=== PATIENT | male | born 1945 | race Caucasian/White ===

== ENCOUNTER 2017-06-30 17:54 | Inpatient (IN) ==
[2017-06-30] MEDS ORDERED: ETOMIDATE 20 MG/10 ML VIAL IV ONE (19:01)
[2017-06-30] MEDS ORDERED: VECURONIUM 10 MG VIAL IV ONE ×2 (19:01→22:33)
[2017-06-30] MEDS ORDERED: PANTOPRAZOLE 40 MG VIAL IV STA (19:06)
[2017-06-30] MEDS ORDERED: SODIUM CHLORIDE 0.9% 500 ML IV STA (19:06)
[2017-06-30] MEDS ORDERED: CLINDAMYCIN INJ 900 MG in PREMIX 1 EACH IV STA (19:06)
[2017-06-30] MEDS ORDERED: methylPREDNISolone SOD SUC 125 MG/2 ML VIAL IV STA (19:06)
[2017-06-30] MEDS ORDERED: PROPOFOL 1,000 MG/100 ML BOTTLE IV ONE (19:25)
[2017-06-30] MEDS: PROPOFOL 1,000 MG/100 ML BOTTLE IV SCH (19:35)
[2017-06-30 19:56] LABS: Allen Test Positive; Pt O2 Delivery Device Ventilator
[2017-06-30 19:57] LABS: ABG Base Excess 3.4 MMOL/L (-2.5-2.5); ABG HCO3 27.5 MMOL/L (20-26); ABG Oxygen Saturation 98.1 % (95-100); ABG PCO2 67.4 MM HG (35-48); ABG TCO2 28.9 MMOL/L (23-27)
[2017-06-30 20:09] LABS: Barbiturates Screen,Urine Negative (Negative); Benzodiazepines Screen,Urine Negative (Negative); Cannabinoid Screen,Urine Negative (Negative); Opiate Screen,Urine Negative (Negative); Phencyclidine Screen,Urine Negative (Negative)
[2017-06-30 20:10] LABS: Apearance,Urine Slightly Hazy (Clear); Bilirubin,Urine Negative (Negative); Blood, Urine Negative (Negative); Glucose,Urine (UA) >=500 mg/dL (Negative); Granular Casts,Urine 5 /LPF (0-1); Hyaline Casts,Urine 7 /LPF (0-3); Ketones,Urine Negative (Negative); Mucus,Urine Occasional /LPF (Occasional); Nitrite,Urine Negative (Negative); Protein,Urine >=500 MG/DL; RBC,Urine 1 /HPF (0-4); Squamous Epithelial Cell,Urine Occasional /HPF (0-10); Urine Color Yellow (Yellow); Urine Specific Gravity 1.017 (1.001-1.035); Urine Urobilinogen < 2.0 EU/DL (0.2-1.0)
[2017-06-30 20:49] LABS: Basophils % 0.2 % (0.0-0.8); Eosinophils # 0.1 10*3/uL (0.0-0.87); Eosinophils % 1.6 % (0.00-10.9); Hematocrit 38.4 VOL% (42.0-52.0); Hemoglobin 12.1 GM/DL (14.0-18.0); Immature Granulocytes % 0.3 %; Immature Granulocytes Absolute 0.02 #; Lymphocytes # 2.1 10*3/uL (1.4-4.0); Lymphocytes % 33.1 % (21.2-54.2); Mean Corpuscular HGB Conc 31.5 GM/DL (32-36); Mean Corpuscular Hemoglobin 28 PG (27-34); Mean Corpuscular Volume 90.1 FL (87-102); Monocytes # 0.9 10*3/uL (0.11-0.8); Monocytes % 14.7 % (1.7-12.7); Neutrophils # 3.2 10*3/uL (1.4-7.4); Neutrophils % 50.1 % (38.7-73.9); Platelet Count 176 T/CUMM (130-400); Red Blood Count 4.26 MC/CUMM (3.8-5.5); Red Cell Distribution Width 14.4 % (9.3-17.3); White Blood Count 6.4 T/CUMM (4-12)
[2017-06-30 20:57] LABS: INR 0.9
[2017-06-30 21:04] LABS: Lactic Acid 1.5 MMOL/L (0.4-2.0)
[2017-06-30 21:06] LABS: Alanine Aminotransferase 12 U/L (16-61); Albumin 2.6 G/DL (3.4-5.0); Alkaline Phosphatase 67 U/L (45-117); Aspartate Amino Transferase 23 U/L (0-37); Blood Urea Nitrogen 22 MG/DL (7-18); Calcium 8.4 MG/DL (8.5-10.1); Glucose 129 MG/DL (74-106); Osmolality,Calculated 274.1 MOS/KG (273-304); Sodium 135 MMOL/L (136-145); Total Protein 7.1 G/DL (6.4-8.3); Troponin I Only < 0.015 NG/ML (0.00-0.045)
[2017-06-30 21:21] LABS: Ammonia 43 UMOL/L (11-32)
[2017-06-30] MEDS ORDERED: PANTOPRAZOLE 40 MG VIAL IV ONE (21:50)
[2017-06-30] MEDS ORDERED: CLINDAMYCIN INJ 50 ML IV ONE (21:50)
[2017-06-30] MEDS ORDERED: methylPREDNISolone SOD SUC 125 MG/2 ML VIAL ONE (21:51)
[2017-06-30 21:54] LABS: Sedimentation Rate-Westergren 85 MM/HR (0-20)
[2017-06-30] MEDS ORDERED: ALBUTEROL 2.5 MG/3 ML NEB RESP TX PRN (23:31)
[2017-06-30] MEDS ORDERED: ACETAMINOPHEN 325 MG TABLET PO PRN (23:31)
[2017-06-30] MEDS ORDERED: ONDANSETRON 4 MG/2 ML VIAL IV PRN (23:31)
[2017-06-30] MEDS ORDERED: PANTOPRAZOLE 40 MG VIAL IV SCH (23:45)
[2017-07-01] MEDS ORDERED: methylPREDNISolone SOD SUC 40 MG/1 ML VIAL IV SCH (00:30)
[2017-07-01] MEDS: methylPREDNISolone SOD SUC 40 MG/1 ML VIAL IV SCH ×4 (00:59→18:30)
[2017-07-01] MEDS ORDERED: fentaNYL INJ 1,250 MCG in SODIUM CHLORIDE 0.9% 225 ML IV SCH (01:30)
[2017-07-01] MEDS ORDERED: LEVOFLOXACIN INJ 150 ML IV ONE (01:46)
[2017-07-01] MEDS: SODIUM CHLORIDE 0.9% 1,000 ML IV SCH ×3 (01:50→18:48)
[2017-07-01] MEDS: LEVOFLOXACIN INJ 750 MG in PREMIX 1 EACH IV SCH (01:55)
[2017-07-01] MEDS: ALBUTEROL/IPRATROPIUM 3 ML NEB RESP TX SCH ×4 (02:08→20:16)
[2017-07-01] MEDS ORDERED: PROPOFOL 1,000 MG/100 ML BOTTLE IV ONE (03:45)
[2017-07-01] MEDS: fentaNYL INJ 1,250 MCG in SODIUM CHLORIDE 0.9% 225 ML IV SCH ×4 (05:45→17:09)
[2017-07-01] MEDS ORDERED: ENOXAPARIN 40 MG/0.4 ML SYRINGE SUBCUT SCH (06:00)
[2017-07-01] MEDS ORDERED: SODIUM CHLORIDE 0.9% 1,000 ML IV ONE ×3 (08:36→17:01)
[2017-07-01] MEDS ORDERED: methylPREDNISolone SOD SUC 40 MG/1 ML VIAL ONE (08:47)
[2017-07-01 08:53] LABS: Pt O2 Delivery Device Ventilator
[2017-07-01 08:55] LABS: ABG Base Excess 0.8 MMOL/L (-2.5-2.5); ABG HCO3 25.1 MMOL/L (20-26); ABG Oxygen Saturation 98.6 % (95-100); ABG PCO2 57.7 MM HG (35-48); ABG PH 7.302 (7.35-7.45); ABG TCO2 25.6 MMOL/L (23-27)
[2017-07-01 09:00] LABS: Eosinophils % 0.2 % (0.00-10.9); Hematocrit 36.1 VOL% (42.0-52.0); Hemoglobin 11.7 GM/DL (14.0-18.0); Immature Granulocytes % 0.2 %; Immature Granulocytes Absolute 0.01 #; Lymphocytes # 0.9 10*3/uL (1.4-4.0); Lymphocytes % 18.4 % (21.2-54.2); Mean Corpuscular HGB Conc 32.4 GM/DL (32-36); Mean Corpuscular Hemoglobin 29 PG (27-34); Mean Platelet Volume 8.7 FL (9.6-12.0); Monocytes # 0.2 10*3/uL (0.11-0.8); Monocytes % 2.9 % (1.7-12.7); Neutrophils % 78.3 % (38.7-73.9); Platelet Count 157 T/CUMM (130-400); White Blood Count 5.1 T/CUMM (4-12)
[2017-07-01 09:38] LABS: Albumin 2.5 G/DL (3.4-5.0); Bilirubin,Total 0.4 MG/DL (0.2-1.0); Calcium 7.8 MG/DL (8.5-10.1); Osmolality,Calculated 281.5 MOS/KG (273-304); Potassium 5.9 MMOL/L (3.5-5.1); Total Protein 5.6 G/DL (6.4-8.3)
[2017-07-01] MEDS: PROPOFOL 1,000 MG/100 ML BOTTLE IV SCH ×2 (09:44→20:49)
[2017-07-01 10:48] LABS: Risk Ratio 4.18; Thyroid Stimulating Hormone 1.87 uIU/ml (0.358-3.74); VLDL CHOLESTEROL 30.6 MG/DL
[2017-07-01] MEDS ORDERED: SODIUM CHLORIDE 0.9% IV ONE (11:16)
[2017-07-01] MEDS ORDERED: SODIUM POLYSTYRENE SULFATE 15 GM/60 ML BOTTLE PO ONE (11:29)
[2017-07-01] MEDS ORDERED: SODIUM CHLORIDE 0.9% 2,600 ML IV ONE (11:30)
[2017-07-01] MEDS ORDERED: ENOXAPARIN 150 MG/ML SYRINGE SUBCUT SCH (12:00)
[2017-07-01] MEDS ORDERED: GLUCAGON 1 MG VIAL IM PRN (12:12)
[2017-07-01] MEDS ORDERED: DEXTROSE 50% 25 GM/50 ML VIAL IV PRN (12:12)
[2017-07-01] MEDS ORDERED: DILTIAZEM 30 MG TABLET PO SCH (13:00)
[2017-07-01] MEDS: OXYMETAZOLINE 0.05% NASAL SPRAY 15 ML BOTTLE BOTH NARES SCH ×2 (13:28→21:04)
[2017-07-01] MEDS: CLINDAMYCIN INJ 600 MG in PREMIX 1 EACH IV SCH ×2 (13:28→18:32)
[2017-07-01] MEDS: DILTIAZEM 30 MG TABLET PO SCH ×2 (13:30→18:30)
[2017-07-01] MEDS: INSULIN LISPRO 100 UNIT/ML SUBCUT SCH ×3 (13:53→20:56)
[2017-07-01 14:36] LABS: PT Patient Result 10.7 SECS
[2017-07-01 16:57] LABS: Calcium 6.8 MG/DL (8.5-10.1); Potassium 5.2 MMOL/L (3.5-5.1)
[2017-07-01] MEDS: OSELTAMIVIR 6 MG/ML 60 ML/BOTTLE PO SCH ×2 (17:19→20:56)
[2017-07-01] MEDS: PANTOPRAZOLE 40 MG VIAL IV SCH (20:56)
[2017-07-02] MEDS: methylPREDNISolone SOD SUC 40 MG/1 ML VIAL IV SCH ×4 (00:14→21:51)
[2017-07-02] MEDS: INSULIN LISPRO 100 UNIT/ML SUBCUT SCH ×6 (00:14→21:50)
[2017-07-02] MEDS: LEVOFLOXACIN INJ 750 MG in PREMIX 1 EACH IV SCH (00:15)
[2017-07-02] MEDS: fentaNYL INJ 1,250 MCG in SODIUM CHLORIDE 0.9% 225 ML IV SCH ×4 (00:20→21:53)
[2017-07-02] MEDS: DILTIAZEM 30 MG TABLET PO SCH ×4 (00:47→17:08)
[2017-07-02] MEDS: SODIUM CHLORIDE 0.9% 1,000 ML IV SCH ×3 (01:55→18:18)
[2017-07-02] MEDS: CLINDAMYCIN INJ 600 MG in PREMIX 1 EACH IV SCH ×3 (01:55→18:16)
[2017-07-02] MEDS: ALBUTEROL/IPRATROPIUM 3 ML NEB RESP TX SCH ×4 (02:31→18:23)
[2017-07-02 03:57] LABS: Pt O2 Delivery Device Ventilator
[2017-07-02 04:03] LABS: ABG Base Excess -2.9 MMOL/L (-2.5-2.5); ABG Oxygen Saturation 98.4 % (95-100); ABG PCO2 59.6 MM HG (35-48); ABG PH 7.242 (7.35-7.45); ABG TCO2 23.4 MMOL/L (23-27)
[2017-07-02 04:44] LABS: Hematocrit 34.9 VOL% (42.0-52.0); Hemoglobin 11.3 GM/DL (14.0-18.0); Immature Granulocytes % 0.7 %; Immature Granulocytes Absolute 0.05 #; Lymphocytes # 0.9 10*3/uL (1.4-4.0); Lymphocytes % 13.3 % (21.2-54.2); Mean Corpuscular HGB Conc 32.4 GM/DL (32-36); Mean Corpuscular Hemoglobin 29 PG (27-34); Mean Platelet Volume 9.1 FL (9.6-12.0); Monocytes # 0.3 10*3/uL (0.11-0.8); Monocytes % 4.7 % (1.7-12.7); Neutrophils # 5.8 10*3/uL (1.4-7.4); Neutrophils % 81.3 % (38.7-73.9); Platelet Count 159 T/CUMM (130-400); Red Blood Count 3.92 MC/CUMM (3.8-5.5); Red Cell Distribution Width 13.8 % (9.3-17.3); White Blood Count 7.1 T/CUMM (4-12)
[2017-07-02 05:10] LABS: Albumin 2.4 G/DL (3.4-5.0); Bilirubin,Total 0.8 MG/DL (0.2-1.0); Calcium 6.8 MG/DL (8.5-10.1); Magnesium 1.8 MG/DL (1.8-2.4); Total Protein 5.4 G/DL (6.4-8.3)
[2017-07-02 05:33] LABS: Prealbumin 10.3 MG/DL (20-40)
[2017-07-02] MEDS: PROPOFOL 1,000 MG/100 ML BOTTLE IV SCH ×3 (08:41→21:51)
[2017-07-02] MEDS: ENOXAPARIN 40 MG/0.4 ML SYRINGE SUBCUT SCH (08:48)
[2017-07-02] MEDS: OXYMETAZOLINE 0.05% NASAL SPRAY 15 ML BOTTLE BOTH NARES SCH ×2 (08:48→21:50)
[2017-07-02] MEDS: OSELTAMIVIR 6 MG/ML 60 ML/BOTTLE PO SCH ×2 (08:50→21:51)
[2017-07-02] MEDS: INSULIN GLARGINE 100 UNIT/ML SUBCUT SCH (15:03)
[2017-07-02] MEDS: SKIN HEALING OINT (AQUAPHOR) 50 GM TUBE TOP PRN (17:08)
[2017-07-02] MEDS: PANTOPRAZOLE 40 MG VIAL IV SCH (21:51)
[2017-07-03] MEDS: ALBUTEROL/IPRATROPIUM 3 ML NEB RESP TX SCH ×4 (00:19→19:56)
[2017-07-03] MEDS: INSULIN GLARGINE 100 UNIT/ML SUBCUT SCH ×2 (01:08→13:28)
[2017-07-03] MEDS: INSULIN LISPRO 100 UNIT/ML SUBCUT SCH ×6 (01:08→22:30)
[2017-07-03] MEDS: LEVOFLOXACIN INJ 750 MG in PREMIX 1 EACH IV SCH (01:09)
[2017-07-03] MEDS: DILTIAZEM 30 MG TABLET PO SCH ×2 (01:09→05:44)
[2017-07-03] MEDS: SODIUM CHLORIDE 0.9% 1,000 ML IV SCH ×3 (01:10→15:25)
[2017-07-03] MEDS: CLINDAMYCIN INJ 600 MG in PREMIX 1 EACH IV SCH ×3 (02:21→17:31)
[2017-07-03 04:31] LABS: ABG Base Excess -0.9 MMOL/L (-2.5-2.5); ABG HCO3 23.7 MMOL/L (20-26); ABG Oxygen Saturation 98.9 % (95-100); ABG PCO2 55.5 MM HG (35-48); ABG PH 7.289 (7.35-7.45); ABG TCO2 24.2 MMOL/L (23-27)
[2017-07-03] MEDS: fentaNYL INJ 1,250 MCG in SODIUM CHLORIDE 0.9% 225 ML IV SCH ×2 (05:25→11:59)
[2017-07-03] MEDS: PROPOFOL 1,000 MG/100 ML BOTTLE IV SCH (05:26)
[2017-07-03 05:32] LABS: Basophils % 0.2 % (0.0-0.8); Hematocrit 33.2 VOL% (42.0-52.0); Hemoglobin 10.9 GM/DL (14.0-18.0); Immature Granulocytes % 0.7 %; Immature Granulocytes Absolute 0.04 #; Lymphocytes # 0.8 10*3/uL (1.4-4.0); Lymphocytes % 13.2 % (21.2-54.2); Mean Corpuscular HGB Conc 32.8 GM/DL (32-36); Mean Corpuscular Hemoglobin 29 PG (27-34); Mean Corpuscular Volume 87.6 FL (87-102); Mean Platelet Volume 9.2 FL (9.6-12.0); Monocytes # 0.3 10*3/uL (0.11-0.8); Monocytes % 5.5 % (1.7-12.7); Neutrophils # 4.7 10*3/uL (1.4-7.4); Neutrophils % 80.4 % (38.7-73.9); Platelet Count 168 T/CUMM (130-400); Red Blood Count 3.79 MC/CUMM (3.8-5.5); Red Cell Distribution Width 13.9 % (9.3-17.3); White Blood Count 5.8 T/CUMM (4-12)
[2017-07-03] MEDS: methylPREDNISolone SOD SUC 40 MG/1 ML VIAL IV SCH ×3 (05:44→17:09)
[2017-07-03 06:04] LABS: Calcium 6.8 MG/DL (8.5-10.1); Osmolality,Calculated 297.5 MOS/KG (273-304); Potassium 4.8 MMOL/L (3.5-5.1)
[2017-07-03] MEDS: OSELTAMIVIR 6 MG/ML 60 ML/BOTTLE PO SCH ×2 (08:30→22:30)
[2017-07-03] MEDS: ENOXAPARIN 40 MG/0.4 ML SYRINGE SUBCUT SCH (08:30)
[2017-07-03] MEDS: OXYMETAZOLINE 0.05% NASAL SPRAY 15 ML BOTTLE BOTH NARES SCH (08:30)
[2017-07-03] MEDS: LEVOTHYROXINE 50 MCG TABLET PO SCH (09:56)
[2017-07-03] MEDS: FUROSEMIDE 40 MG TABLET PO SCH (09:56)
[2017-07-03] MEDS: ASPIRIN EC 81 MG TABLET PO SCH (09:56)
[2017-07-03] MEDS: SOTALOL 80 MG TABLET PO SCH (09:56)
[2017-07-03] MEDS: ENALAPRIL 2.5 MG TABLET PO SCH (09:56)
[2017-07-03] MEDS: PANTOPRAZOLE 40 MG VIAL IV SCH (22:30)
[2017-07-03] MEDS: ROSUVASTATIN 20 MG TABLET PO SCH (22:30)
[2017-07-04] MEDS: OXYMETAZOLINE 0.05% NASAL SPRAY 15 ML BOTTLE BOTH NARES SCH ×3 (00:25→20:45)
[2017-07-04] MEDS: fentaNYL INJ 1,250 MCG in SODIUM CHLORIDE 0.9% 225 ML IV SCH ×4 (00:26→17:30)
[2017-07-04] MEDS: INSULIN GLARGINE 100 UNIT/ML SUBCUT SCH ×2 (00:56→12:21)
[2017-07-04] MEDS: INSULIN LISPRO 100 UNIT/ML SUBCUT SCH ×6 (00:56→20:45)
[2017-07-04] MEDS: LEVOFLOXACIN INJ 750 MG in PREMIX 1 EACH IV SCH (00:57)
[2017-07-04] MEDS: ALBUTEROL/IPRATROPIUM 3 ML NEB RESP TX SCH ×4 (01:02→20:41)
[2017-07-04] MEDS: PROPOFOL 1,000 MG/100 ML BOTTLE IV SCH ×5 (01:46→21:45)
[2017-07-04] MEDS: SODIUM CHLORIDE 0.9% 1,000 ML IV SCH ×2 (02:31→03:45)
[2017-07-04] MEDS: CLINDAMYCIN INJ 600 MG in PREMIX 1 EACH IV SCH ×3 (03:35→17:38)
[2017-07-04 03:36] LABS: ABG Base Excess -0.1 MMOL/L (-2.5-2.5); ABG HCO3 24.4 MMOL/L (20-26); ABG Oxygen Saturation 98.1 % (95-100); ABG TCO2 24.4 MMOL/L (23-27); Allen Test Positive; Pt O2 Delivery Device Ventilator
[2017-07-04 05:02] LABS: Basophils % 0.2 % (0.0-0.8); Hematocrit 32.6 VOL% (42.0-52.0); Hemoglobin 10.7 GM/DL (14.0-18.0); Immature Granulocytes % 1.3 %; Immature Granulocytes Absolute 0.08 #; Lymphocytes # 1.1 10*3/uL (1.4-4.0); Lymphocytes % 18.5 % (21.2-54.2); Mean Corpuscular HGB Conc 32.8 GM/DL (32-36); Mean Corpuscular Hemoglobin 29 PG (27-34); Mean Corpuscular Volume 87.9 FL (87-102); Mean Platelet Volume 9.2 FL (9.6-12.0); Monocytes # 0.6 10*3/uL (0.11-0.8); Monocytes % 9.8 % (1.7-12.7); Neutrophils # 4.3 10*3/uL (1.4-7.4); Neutrophils % 70.2 % (38.7-73.9); Platelet Count 185 T/CUMM (130-400); Red Blood Count 3.71 MC/CUMM (3.8-5.5); Red Cell Distribution Width 13.9 % (9.3-17.3); White Blood Count 6.1 T/CUMM (4-12)
[2017-07-04 05:25] LABS: Calcium 6.8 MG/DL (8.5-10.1); Magnesium 2.1 MG/DL (1.8-2.4); Osmolality,Calculated 303.1 MOS/KG (273-304); Potassium 4.4 MMOL/L (3.5-5.1)
[2017-07-04] MEDS: methylPREDNISolone SOD SUC 40 MG/1 ML VIAL IV SCH ×2 (06:01→17:38)
[2017-07-04 08:24] LABS: ABG Base Excess 0.1 MMOL/L (-2.5-2.5); ABG HCO3 25.8 MMOL/L (20-26); ABG Oxygen Saturation 98.8 % (95-100); ABG PH 7.366 (7.35-7.45); ABG PO2 203.9 MM HG (80-95); ABG TCO2 27.2 MMOL/L (23-27); Allen Test Positive; Pt O2 Delivery Device Ventilator
[2017-07-04] MEDS: OSELTAMIVIR 6 MG/ML 60 ML/BOTTLE PO SCH ×2 (08:37→20:45)
[2017-07-04] MEDS: ENOXAPARIN 40 MG/0.4 ML SYRINGE SUBCUT SCH (08:37)
[2017-07-04] MEDS: LEVOTHYROXINE 50 MCG TABLET PO SCH (08:37)
[2017-07-04] MEDS: FUROSEMIDE 40 MG TABLET PO SCH (08:38)
[2017-07-04] MEDS: ASPIRIN EC 81 MG TABLET PO SCH (08:45)
[2017-07-04] MEDS: ENALAPRIL 2.5 MG TABLET PO SCH (08:45)
[2017-07-04] MEDS: SOTALOL 80 MG TABLET PO SCH ×2 (08:46→10:14)
[2017-07-04] MEDS: PANTOPRAZOLE 40 MG VIAL IV SCH (20:50)
[2017-07-04] MEDS: ROSUVASTATIN 20 MG TABLET PO SCH (22:06)
[2017-07-05] MEDS: INSULIN GLARGINE 100 UNIT/ML SUBCUT SCH ×2 (00:42→12:32)
[2017-07-05] MEDS: LEVOFLOXACIN INJ 750 MG in PREMIX 1 EACH IV SCH (00:42)
[2017-07-05] MEDS: INSULIN LISPRO 100 UNIT/ML SUBCUT SCH ×6 (00:42→20:37)
[2017-07-05] MEDS: ALBUTEROL/IPRATROPIUM 3 ML NEB RESP TX SCH ×4 (01:11→19:47)
[2017-07-05] MEDS: CLINDAMYCIN INJ 600 MG in PREMIX 1 EACH IV SCH ×3 (02:28→18:11)
[2017-07-05 03:46] LABS: ABG HCO3 27.9 MMOL/L (20-26); ABG Oxygen Saturation 98.9 % (95-100); ABG PCO2 52.8 MM HG (35-48); ABG PH 7.377 (7.35-7.45); ABG TCO2 25.6 MMOL/L (23-27); Allen Test Positive; Pt O2 Delivery Device Ventilator
[2017-07-05 04:19] LABS: Basophils % 0.2 % (0.0-0.8); Hematocrit 34.8 VOL% (42.0-52.0); Hemoglobin 11.5 GM/DL (14.0-18.0); Immature Granulocytes % 2.2 %; Immature Granulocytes Absolute 0.13 #; Lymphocytes # 1.2 10*3/uL (1.4-4.0); Lymphocytes % 19.9 % (21.2-54.2); Mean Corpuscular Hemoglobin 29 PG (27-34); Mean Corpuscular Volume 88.3 FL (87-102); Monocytes # 0.5 10*3/uL (0.11-0.8); Monocytes % 8.7 % (1.7-12.7); Platelet Count 180 T/CUMM (130-400); Red Blood Count 3.94 MC/CUMM (3.8-5.5); Red Cell Distribution Width 13.8 % (9.3-17.3); White Blood Count 5.8 T/CUMM (4-12)
[2017-07-05] MEDS: methylPREDNISolone SOD SUC 40 MG/1 ML VIAL IV SCH ×2 (06:28→18:11)
[2017-07-05] MEDS: fentaNYL INJ 1,250 MCG in SODIUM CHLORIDE 0.9% 225 ML IV SCH ×2 (07:49→17:50)
[2017-07-05] MEDS: SOTALOL 80 MG TABLET PO SCH (08:05)
[2017-07-05] MEDS: ASPIRIN EC 81 MG TABLET PO SCH (08:05)
[2017-07-05] MEDS: ENALAPRIL 2.5 MG TABLET PO SCH (08:05)
[2017-07-05] MEDS: OSELTAMIVIR 6 MG/ML 60 ML/BOTTLE PO SCH ×2 (08:05→20:37)
[2017-07-05] MEDS: LEVOTHYROXINE 50 MCG TABLET PO SCH (08:05)
[2017-07-05] MEDS: ENOXAPARIN 40 MG/0.4 ML SYRINGE SUBCUT SCH (08:06)
[2017-07-05] MEDS: OXYMETAZOLINE 0.05% NASAL SPRAY 15 ML BOTTLE BOTH NARES SCH ×2 (08:06→20:38)
[2017-07-05] MEDS: FUROSEMIDE 40 MG/4 ML VIAL IV SCH (10:00)
[2017-07-05] MEDS: PROPOFOL 1,000 MG/100 ML BOTTLE IV SCH ×2 (15:00→21:30)
[2017-07-05] MEDS: ROSUVASTATIN 20 MG TABLET PO SCH (20:37)
[2017-07-05] MEDS: PANTOPRAZOLE 40 MG VIAL IV SCH (20:37)
[2017-07-06] MEDS: INSULIN LISPRO 100 UNIT/ML SUBCUT SCH ×6 (00:20→20:19)
[2017-07-06] MEDS: LEVOFLOXACIN INJ 750 MG in PREMIX 1 EACH IV SCH (00:20)
[2017-07-06] MEDS: INSULIN GLARGINE 100 UNIT/ML SUBCUT SCH ×2 (00:20→12:00)
[2017-07-06] MEDS: ALBUTEROL/IPRATROPIUM 3 ML NEB RESP TX SCH ×4 (01:32→20:16)
[2017-07-06] MEDS: PROPOFOL 1,000 MG/100 ML BOTTLE IV SCH ×2 (02:25→20:19)
[2017-07-06] MEDS: CLINDAMYCIN INJ 600 MG in PREMIX 1 EACH IV SCH ×3 (03:00→18:15)
[2017-07-06 04:29] LABS: ABG HCO3 31.8 MMOL/L (20-26); ABG Oxygen Saturation 97.2 % (95-100); ABG PH 7.418 (7.35-7.45); ABG PO2 87.3 MM HG (80-95); ABG TCO2 30.2 MMOL/L (23-27); Allen Test Positive; Pt O2 Delivery Device Ventilator
[2017-07-06] MEDS: methylPREDNISolone SOD SUC 40 MG/1 ML VIAL IV SCH ×2 (05:26→09:38)
[2017-07-06] MEDS: fentaNYL INJ 1,250 MCG in SODIUM CHLORIDE 0.9% 225 ML IV SCH (07:57)
[2017-07-06] MEDS: SOTALOL 80 MG TABLET PO SCH (08:20)
[2017-07-06] MEDS: LEVOTHYROXINE 50 MCG TABLET PO SCH (08:20)
[2017-07-06] MEDS: ENALAPRIL 2.5 MG TABLET PO SCH (08:21)
[2017-07-06] MEDS: FUROSEMIDE 40 MG/4 ML VIAL IV SCH (08:22)
[2017-07-06] MEDS: ASPIRIN EC 81 MG TABLET PO SCH (08:22)
[2017-07-06] MEDS: OSELTAMIVIR 6 MG/ML 60 ML/BOTTLE PO SCH (08:23)
[2017-07-06] MEDS: ENOXAPARIN 40 MG/0.4 ML SYRINGE SUBCUT SCH (08:23)
[2017-07-06] MEDS: ENALAPRIL 5 MG TABLET PO SCH (08:25)
[2017-07-06 08:56] LABS: Calcium 7.9 MG/DL (8.5-10.1); Magnesium 2.1 MG/DL (1.8-2.4); Osmolality,Calculated 293.4 MOS/KG (273-304); Potassium 4.6 MMOL/L (3.5-5.1)
[2017-07-06] MEDS: SKIN HEALING OINT (AQUAPHOR) 50 GM TUBE TOP PRN (09:38)
[2017-07-06 09:56] LABS: Allen Test Positive; Pt O2 Delivery Device Ventilator
[2017-07-06 09:57] LABS: ABG Base Excess 10.1 MMOL/L (-2.5-2.5); ABG HCO3 35.7 MMOL/L (20-26); ABG Oxygen Saturation 94.7 % (95-100); ABG PCO2 51.2 MM HG (35-48); ABG PH 7.461 (7.35-7.45); ABG PO2 72.9 MM HG (80-95); ABG TCO2 37.3 MMOL/L (23-27)
[2017-07-06 12:00] LABS: ABG Base Excess 10.5 MMOL/L (-2.5-2.5); ABG HCO3 36.5 MMOL/L (20-26); ABG Oxygen Saturation 92.9 % (95-100); ABG PCO2 53.6 MM HG (35-48); ABG PH 7.451 (7.35-7.45); ABG PO2 66.3 MM HG (80-95); ABG TCO2 38.1 MMOL/L (23-27); Allen Test Positive
[2017-07-06] MEDS: ROSUVASTATIN 20 MG TABLET PO SCH (20:19)
[2017-07-06] MEDS: PANTOPRAZOLE 40 MG VIAL IV SCH (20:19)
[2017-07-07] MEDS: INSULIN GLARGINE 100 UNIT/ML SUBCUT SCH ×2 (00:15→14:03)
[2017-07-07] MEDS: INSULIN LISPRO 100 UNIT/ML SUBCUT SCH ×7 (00:15→23:42)
[2017-07-07] MEDS: LEVOFLOXACIN INJ 750 MG in PREMIX 1 EACH IV SCH (00:15)
[2017-07-07] MEDS: ALBUTEROL/IPRATROPIUM 3 ML NEB RESP TX SCH ×4 (01:48→19:39)
[2017-07-07] MEDS: CLINDAMYCIN INJ 600 MG in PREMIX 1 EACH IV SCH ×3 (03:00→18:26)
[2017-07-07 06:13] LABS: Calcium 8.5 MG/DL (8.5-10.1); Osmolality,Calculated 292.3 MOS/KG (273-304); Potassium 3.6 MMOL/L (3.5-5.1)
[2017-07-07 06:35] LABS: Magnesium 1.9 MG/DL (1.8-2.4)
[2017-07-07] MEDS: fentaNYL INJ 1,250 MCG in SODIUM CHLORIDE 0.9% 225 ML IV SCH (09:01)
[2017-07-07] MEDS: SOTALOL 80 MG TABLET PO SCH (09:22)
[2017-07-07] MEDS: SPIRONOLACTONE 25 MG TABLET PO SCH (09:22)
[2017-07-07] MEDS: ENOXAPARIN 40 MG/0.4 ML SYRINGE SUBCUT SCH (09:22)
[2017-07-07] MEDS: LEVOTHYROXINE 50 MCG TABLET PO SCH (09:23)
[2017-07-07] MEDS: ENALAPRIL 2.5 MG TABLET PO SCH (09:23)
[2017-07-07] MEDS: ASCORBIC ACID 500 MG TABLET PO SCH ×2 (09:23→20:09)
[2017-07-07] MEDS: FUROSEMIDE 40 MG/4 ML VIAL IV SCH (09:24)
[2017-07-07] MEDS: methylPREDNISolone SOD SUC 40 MG/1 ML VIAL IV SCH (09:26)
[2017-07-07] MEDS: ENALAPRIL 5 MG TABLET PO SCH (09:28)
[2017-07-07] MEDS: ASPIRIN EC 81 MG TABLET PO SCH (10:01)
[2017-07-07] MEDS: MAGNESIUM CHLORIDE 64 MG TABLET PO SCH ×2 (11:16→20:10)
[2017-07-07] MEDS: ROSUVASTATIN 20 MG TABLET PO SCH (20:11)
[2017-07-07] MEDS: PANTOPRAZOLE 40 MG VIAL IV SCH (20:11)
[2017-07-08] MEDS: INSULIN GLARGINE 100 UNIT/ML SUBCUT SCH ×2 (00:39→12:33)
[2017-07-08] MEDS: LEVOFLOXACIN INJ 750 MG in PREMIX 1 EACH IV SCH (00:44)
[2017-07-08] MEDS: ALBUTEROL/IPRATROPIUM 3 ML NEB RESP TX SCH ×4 (00:45→21:32)
[2017-07-08] MEDS: CLINDAMYCIN INJ 600 MG in PREMIX 1 EACH IV SCH (01:46)
[2017-07-08] MEDS: INSULIN LISPRO 100 UNIT/ML SUBCUT SCH ×5 (04:28→21:08)
[2017-07-08] MEDS: ENALAPRIL 2.5 MG TABLET PO SCH (08:06)
[2017-07-08] MEDS: LEVOFLOXACIN 500 MG TABLET PO SCH (08:06)
[2017-07-08] MEDS: ASCORBIC ACID 500 MG TABLET PO SCH ×2 (08:06→21:13)
[2017-07-08] MEDS: ENOXAPARIN 40 MG/0.4 ML SYRINGE SUBCUT SCH (08:07)
[2017-07-08] MEDS: ASPIRIN EC 81 MG TABLET PO SCH (08:07)
[2017-07-08] MEDS: LEVOTHYROXINE 50 MCG TABLET PO SCH (08:07)
[2017-07-08] MEDS: SOTALOL 80 MG TABLET PO SCH (08:07)
[2017-07-08] MEDS: SPIRONOLACTONE 25 MG TABLET PO SCH (08:07)
[2017-07-08] MEDS: MAGNESIUM CHLORIDE 64 MG TABLET PO SCH ×2 (08:07→21:15)
[2017-07-08] MEDS: FUROSEMIDE 40 MG/4 ML VIAL IV SCH (08:08)
[2017-07-08] MEDS: ENALAPRIL 5 MG TABLET PO SCH (10:12)
[2017-07-08] MEDS: ROSUVASTATIN 20 MG TABLET PO SCH (21:15)
[2017-07-08] MEDS: PANTOPRAZOLE 40 MG VIAL IV SCH (21:16)
[2017-07-09] MEDS: ALBUTEROL/IPRATROPIUM 3 ML NEB RESP TX SCH ×4 (01:05→20:25)
[2017-07-09] MEDS: INSULIN LISPRO 100 UNIT/ML SUBCUT SCH ×6 (02:07→21:15)
[2017-07-09] MEDS: INSULIN GLARGINE 100 UNIT/ML SUBCUT SCH ×2 (02:08→14:08)
[2017-07-09 04:56] LABS: Basophils % 0.3 % (0.0-0.8); Eosinophils # 0.1 10*3/uL (0.0-0.87); Eosinophils % 1.8 % (0.00-10.9); Hematocrit 40.8 VOL% (42.0-52.0); Hemoglobin 13.5 GM/DL (14.0-18.0); Immature Granulocytes % 0.9 %; Immature Granulocytes Absolute 0.07 #; Lymphocytes # 1.9 10*3/uL (1.4-4.0); Lymphocytes % 23.4 % (21.2-54.2); Mean Corpuscular HGB Conc 33.1 GM/DL (32-36); Mean Corpuscular Hemoglobin 29 PG (27-34); Monocytes # 0.8 10*3/uL (0.11-0.8); Monocytes % 10.3 % (1.7-12.7); Neutrophils # 5.1 10*3/uL (1.4-7.4); Neutrophils % 63.3 % (38.7-73.9); Platelet Count 182 T/CUMM (130-400); Red Blood Count 4.69 MC/CUMM (3.8-5.5)
[2017-07-09 05:15] LABS: Albumin 2.5 G/DL (3.4-5.0); Bilirubin,Total 0.6 MG/DL (0.2-1.0); Calcium 7.9 MG/DL (8.5-10.1); Osmolality,Calculated 287.3 MOS/KG (273-304); Potassium 4.1 MMOL/L (3.5-5.1); Total Protein 5.6 G/DL (6.4-8.3)
[2017-07-09] MEDS: ASCORBIC ACID 500 MG TABLET PO SCH ×2 (09:47→21:10)
[2017-07-09] MEDS: FUROSEMIDE 40 MG/4 ML VIAL IV SCH (09:47)
[2017-07-09] MEDS: ASPIRIN EC 81 MG TABLET PO SCH (09:48)
[2017-07-09] MEDS: SPIRONOLACTONE 25 MG TABLET PO SCH (09:48)
[2017-07-09] MEDS: SOTALOL 80 MG TABLET PO SCH (09:48)
[2017-07-09] MEDS: ENOXAPARIN 40 MG/0.4 ML SYRINGE SUBCUT SCH (09:48)
[2017-07-09] MEDS: LEVOFLOXACIN 500 MG TABLET PO SCH (09:48)
[2017-07-09] MEDS: MAGNESIUM CHLORIDE 64 MG TABLET PO SCH ×2 (09:48→21:10)
[2017-07-09] MEDS: LEVOTHYROXINE 50 MCG TABLET PO SCH (09:49)
[2017-07-09] MEDS: ENALAPRIL 5 MG TABLET PO SCH (09:59)
[2017-07-09] MEDS: ROSUVASTATIN 20 MG TABLET PO SCH (21:10)
[2017-07-09] MEDS: PANTOPRAZOLE 40 MG VIAL IV SCH (21:12)
[2017-07-10] MEDS: ALBUTEROL/IPRATROPIUM 3 ML NEB RESP TX SCH ×2 (00:02→12:41)
[2017-07-10] MEDS: INSULIN LISPRO 100 UNIT/ML SUBCUT SCH ×4 (00:57→12:34)
[2017-07-10] MEDS: INSULIN GLARGINE 100 UNIT/ML SUBCUT SCH ×2 (00:58→12:34)
[2017-07-10] MEDS: SPIRONOLACTONE 25 MG TABLET PO SCH (09:37)
[2017-07-10] MEDS: ASCORBIC ACID 500 MG TABLET PO SCH (09:37)
[2017-07-10] MEDS: SOTALOL 80 MG TABLET PO SCH (09:38)
[2017-07-10] MEDS: ASPIRIN EC 81 MG TABLET PO SCH (09:38)
[2017-07-10] MEDS: MAGNESIUM CHLORIDE 64 MG TABLET PO SCH (09:38)
[2017-07-10] MEDS: LEVOTHYROXINE 50 MCG TABLET PO SCH (09:38)
[2017-07-10] MEDS: LEVOFLOXACIN 500 MG TABLET PO SCH (09:38)
[2017-07-10] MEDS: FUROSEMIDE 40 MG/4 ML VIAL IV SCH (09:39)
[2017-07-10] MEDS: ENOXAPARIN 40 MG/0.4 ML SYRINGE SUBCUT SCH (09:39)
[2017-07-10] MEDS: ENALAPRIL 5 MG TABLET PO SCH (09:46)
[2017-07-10 11:43] VITALS: BP 115/65
== END 2017-07-10 14:45 | disposition home health service (06) | DRG 870 ==
LOC: N.ED 17:54 → N.EDINP 22:58 → SUATTDRO 22:58 → N.CC 07-01 09:05 → N.4E 07-08 14:37
PROVIDERS: ADMIT Internal Medicine; ATTEND Pediatrics

== ENCOUNTER 2021-01-05 08:11 | Inpatient (IN) ==
[2021-01-05] MEDS: SODIUM CHLORIDE 0.9% 500 ML IV STA ×2 (10:20→16:47)
[2021-01-05 10:45] LABS: Basophils % 0.1 % (0.0-0.8); Hemoglobin 14.5 GM/DL (14.0-18.0); Immature Granulocytes % 0.3 %; Immature Granulocytes Absolute 0.03 #; Lymphocytes # 1.9 10*3/uL (1.4-4.0); Mean Corpuscular HGB Conc 34.5 GM/DL (32-36); Mean Corpuscular Volume 88.4 FL (87-102); Mean Platelet Volume 8.8 FL (9.6-12.0); Monocytes % 8.8 % (1.7-12.7); Neutrophils % 69.8 % (38.7-73.9); Platelet Count 166 T/CUMM (130-400); Red Blood Count 4.75 MC/CUMM (3.8-5.5); Red Cell Distribution Width 15.6 % (9.3-17.3); White Blood Count 9.1 T/CUMM (4-12)
[2021-01-05 10:52] LABS: Bacteria,Urine Occasional /HPF (Few); Bilirubin,Urine Negative (Negative); Blood, Urine Small mg/dL (Negative); Glucose,Urine (UA) 50 mg/dL (Negative); Hyaline Casts,Urine 6 /LPF (0-3); Ketones,Urine 80 mg/dL (Negative); Mucus,Urine Occasional /LPF (Occasional); Nitrite,Urine Negative (Negative); Protein,Urine >=500 MG/DL; RBC,Urine 3 /HPF (0-4); Squamous Epithelial Cell,Urine Occasional /HPF (0-10); Urine Appearance Slightly Hazy (Clear); Urine Color Yellow (Yellow); Urine Specific Gravity 1.017 (1.001-1.035); Urine Urobilinogen < 2.0 EU/DL (0.2-1.0)
[2021-01-05 12:20] LABS: Albumin 3.3 G/DL (3.4-5.0); Bilirubin,Total 0.9 MG/DL (0.20-1.00); Calcium 9.1 MG/DL (8.5-10.1); Osmolality,Calculated 276.8 MOS/KG (273-304); Potassium 4.2 MMOL/L (3.5-5.1); Total Protein 7.1 G/DL (6.4-8.2)
[2021-01-05] MEDS ORDERED: DEXTROSE 50% 25 GM/50 ML VIAL IV PRN (12:34)
[2021-01-05] MEDS ORDERED: GLUCAGON 1 MG VIAL IM PRN (12:34)
[2021-01-05] MEDS ORDERED: hydrALAZINE 20 MG/1 ML VIAL IV PRN (12:37)
[2021-01-05] MEDS ORDERED: BISACODYL 5 MG TABLET PO PRN (12:37)
[2021-01-05] MEDS ORDERED: ONDANSETRON 4 MG/2 ML VIAL IV PRN (12:37)
[2021-01-05] MEDS ORDERED: ACETAMINOPHEN 325 MG TABLET PO PRN (12:37)
[2021-01-05] MEDS ORDERED: ENOXAPARIN 40 MG/0.4 ML SYRINGE SUBCUT SCH (13:00)
[2021-01-05] MEDS: MULTIVITAMIN (CENTRUM) TABLET PO SCH (16:47)
[2021-01-05] MEDS: SOTALOL 80 MG TABLET PO SCH (16:47)
[2021-01-05] MEDS: INSULIN GLARGINE 100 UNIT/ML SUBCUT SCH (16:47)
[2021-01-05] MEDS: PANTOPRAZOLE 40 MG TABLET PO SCH (16:48)
[2021-01-05] MEDS: CHOLECALCIFEROL 1,000 UNIT TABLET PO SCH (16:48)
[2021-01-05] MEDS: LEVOTHYROXINE 50 MCG TABLET PO SCH (16:48)
[2021-01-05] MEDS: MAGNESIUM OXIDE 400 MG TABLET PO SCH (16:48)
[2021-01-05] MEDS: INSULIN LISPRO 100 UNIT/ML SUBCUT SCH ×2 (17:48→21:00)
[2021-01-05] MEDS: SODIUM CHLORIDE 0.9% 1,000 ML IV SCH (18:37)
[2021-01-05] MEDS: ASCORBIC ACID 500 MG TABLET PO SCH (20:46)
[2021-01-05] MEDS ORDERED: PIOGLITAZONE 15 MG TABLET PO SCH (21:00)
[2021-01-05] MEDS ORDERED: SIMVASTATIN 20 MG TABLET PO SCH (21:00)
[2021-01-06] MEDS: INSULIN GLARGINE 100 UNIT/ML SUBCUT SCH ×3 (01:47→20:39)
[2021-01-06] MEDS ORDERED: MAGNESIUM SULF RIDER 2 GM/50 ML PREMIX IV PRN (04:00)
[2021-01-06 05:37] LABS: Basophils % 0.1 % (0.0-0.8); Eosinophils % 0.1 % (0.00-10.9); Hematocrit 36.6 VOL% (42.0-52.0); Hemoglobin 12.4 GM/DL (14.0-18.0); Immature Granulocytes % 0.5 %; Immature Granulocytes Absolute 0.04 #; Mean Corpuscular HGB Conc 33.9 GM/DL (32-36); Mean Corpuscular Volume 89.5 FL (87-102); Mean Platelet Volume 9.5 FL (9.6-12.0); Monocytes % 10.5 % (1.7-12.7); Neutrophils % 63.8 % (38.7-73.9); Platelet Count 156 T/CUMM (130-400); Red Blood Count 4.09 MC/CUMM (3.8-5.5); Red Cell Distribution Width 15.8 % (9.3-17.3)
[2021-01-06] MEDS: LEVOTHYROXINE 50 MCG TABLET PO SCH (06:03)
[2021-01-06 06:07] LABS: Albumin 2.7 G/DL (3.4-5.0); Bilirubin,Total 0.8 MG/DL (0.20-1.00); Calcium 8.3 MG/DL (8.5-10.1); Osmolality,Calculated 282.5 MOS/KG (273-304); Potassium 3.7 MMOL/L (3.5-5.1); Risk Ratio 3.19; Thyroid Stimulating Hormone 3.97 uIU/ml (0.358-3.74)
[2021-01-06] MEDS: SODIUM CHLORIDE 0.9% 1,000 ML IV SCH ×4 (06:10→18:12)
[2021-01-06] MEDS: INSULIN LISPRO 100 UNIT/ML SUBCUT SCH ×4 (08:59→20:02)
[2021-01-06] MEDS: SOTALOL 80 MG TABLET PO SCH (09:00)
[2021-01-06] MEDS: MULTIVITAMIN (CENTRUM) TABLET PO SCH (09:00)
[2021-01-06] MEDS: PANTOPRAZOLE 40 MG TABLET PO SCH (09:00)
[2021-01-06] MEDS: ASCORBIC ACID 500 MG TABLET PO SCH (09:00)
[2021-01-06] MEDS: MAGNESIUM OXIDE 400 MG TABLET PO SCH (09:00)
[2021-01-06] MEDS: CHOLECALCIFEROL 1,000 UNIT TABLET PO SCH (09:00)
[2021-01-06] MEDS ORDERED: MORPHINE 2 MG/1 ML SYRINGE IV PRN (10:27)
[2021-01-06] MEDS: LIDOCAINE 5% PATCH TRANSDERM SCH (11:37)
[2021-01-06] MEDS: MORPHINE ER 15 MG TABLET PO SCH ×2 (11:37→20:38)
[2021-01-07] MEDS: LEVOTHYROXINE 50 MCG TABLET PO SCH (05:55)
[2021-01-07] MEDS: INSULIN LISPRO 100 UNIT/ML SUBCUT SCH ×4 (07:37→21:01)
[2021-01-07] MEDS ORDERED: FUROSEMIDE 20 MG/2 ML VIAL IV PRN (08:21)
[2021-01-07] MEDS: MORPHINE ER 15 MG TABLET PO SCH ×2 (08:37→21:00)
[2021-01-07] MEDS: PANTOPRAZOLE 40 MG TABLET PO SCH (08:37)
[2021-01-07] MEDS: SOTALOL 80 MG TABLET PO SCH (08:37)
[2021-01-07] MEDS: LIDOCAINE 5% PATCH TRANSDERM SCH (08:37)
[2021-01-07] MEDS: INSULIN GLARGINE 100 UNIT/ML SUBCUT SCH ×2 (08:38→21:00)
[2021-01-07] MEDS ORDERED: DEXAMETHASONE 10 MG/1 ML VIAL IV ONE (11:30)
[2021-01-07] MEDS ORDERED: DEXAMETHASONE 4 MG/1 ML VIAL IV ONE (12:00)
[2021-01-07] MEDS: SODIUM CHLORIDE 0.9% 1,000 ML IV SCH (16:46)
[2021-01-08] MEDS: LEVOTHYROXINE 50 MCG TABLET PO SCH (05:40)
[2021-01-08 05:56] LABS: Hematocrit 33.8 VOL% (42.0-52.0); Hemoglobin 11.7 GM/DL (14.0-18.0); Immature Granulocytes % 0.5 %; Immature Granulocytes Absolute 0.03 #; Lymphocytes # 1.5 10*3/uL (1.4-4.0); Lymphocytes % 27.3 % (21.2-54.2); Mean Corpuscular HGB Conc 34.6 GM/DL (32-36); Mean Corpuscular Volume 88.9 FL (87-102); Monocytes % 9.6 % (1.7-12.7); Neutrophils % 62.6 % (38.7-73.9); Platelet Count 134 T/CUMM (130-400); Red Cell Distribution Width 15.9 % (9.3-17.3); White Blood Count 5.6 T/CUMM (4-12)
[2021-01-08 06:16] LABS: Calcium 7.6 MG/DL (8.5-10.1); Osmolality,Calculated 283.4 MOS/KG (273-304); Potassium 3.9 MMOL/L (3.5-5.1)
[2021-01-08] MEDS: INSULIN LISPRO 100 UNIT/ML SUBCUT SCH ×4 (07:42→22:01)
[2021-01-08] MEDS ORDERED: DEXAMETHASONE 10 MG/1 ML VIAL IV ONE (08:24)
[2021-01-08] MEDS: SOTALOL 80 MG TABLET PO SCH (09:32)
[2021-01-08] MEDS: INSULIN GLARGINE 100 UNIT/ML SUBCUT SCH ×2 (09:32→22:02)
[2021-01-08] MEDS: PANTOPRAZOLE 40 MG TABLET PO SCH (09:32)
[2021-01-08] MEDS: LIDOCAINE 5% PATCH TRANSDERM SCH (09:33)
[2021-01-08] MEDS: MORPHINE ER 15 MG TABLET PO SCH ×2 (09:33→22:01)
[2021-01-08] MEDS: MENTHOL/ZINC OXIDE OINT 71 GM JAR TOP SCH (15:37)
[2021-01-08] MEDS: SKIN HEALING OINT (AQUAPHOR) 50 GM TUBE TOP SCH (15:37)
[2021-01-08] MEDS: SODIUM CHLORIDE 0.9% 1,000 ML IV SCH (22:34)
[2021-01-09] MEDS: LEVOTHYROXINE 50 MCG TABLET PO SCH (06:21)
[2021-01-09] MEDS: INSULIN LISPRO 100 UNIT/ML SUBCUT SCH ×4 (07:24→21:38)
[2021-01-09] MEDS: PANTOPRAZOLE 40 MG TABLET PO SCH (08:23)
[2021-01-09] MEDS: INSULIN GLARGINE 100 UNIT/ML SUBCUT SCH ×2 (08:23→21:38)
[2021-01-09] MEDS: LIDOCAINE 5% PATCH TRANSDERM SCH (08:23)
[2021-01-09] MEDS: MORPHINE ER 15 MG TABLET PO SCH ×2 (08:23→21:32)
[2021-01-09] MEDS: MENTHOL/ZINC OXIDE OINT 71 GM JAR TOP SCH (08:23)
[2021-01-09] MEDS: SKIN HEALING OINT (AQUAPHOR) 50 GM TUBE TOP SCH (08:23)
[2021-01-09] MEDS: SOTALOL 80 MG TABLET PO SCH (08:23)
[2021-01-09] MEDS: SODIUM CHLORIDE 0.9% 1,000 ML IV SCH (21:39)
[2021-01-10] MEDS: LEVOTHYROXINE 50 MCG TABLET PO SCH (06:09)
[2021-01-10] MEDS: SOTALOL 80 MG TABLET PO SCH (08:45)
[2021-01-10] MEDS: PANTOPRAZOLE 40 MG TABLET PO SCH (08:45)
[2021-01-10] MEDS: LIDOCAINE 5% PATCH TRANSDERM SCH (08:45)
[2021-01-10] MEDS: MORPHINE ER 15 MG TABLET PO SCH ×2 (08:45→21:48)
[2021-01-10] MEDS: INSULIN GLARGINE 100 UNIT/ML SUBCUT SCH ×2 (08:46→21:48)
[2021-01-10] MEDS: SKIN HEALING OINT (AQUAPHOR) 50 GM TUBE TOP SCH (08:52)
[2021-01-10] MEDS: MENTHOL/ZINC OXIDE OINT 71 GM JAR TOP SCH (08:52)
[2021-01-10] MEDS: INSULIN LISPRO 100 UNIT/ML SUBCUT SCH ×4 (08:53→22:20)
[2021-01-10] MEDS ORDERED: TUBERCULIN SKIN TEST 0.1 ML SYRINGE INTRADERM ONE (09:35)
[2021-01-10] MEDS: SODIUM CHLORIDE 0.9% 1,000 ML IV SCH (14:31)
[2021-01-11] MEDS: LEVOTHYROXINE 50 MCG TABLET PO SCH (05:38)
[2021-01-11] MEDS: INSULIN LISPRO 100 UNIT/ML SUBCUT SCH ×4 (07:26→21:26)
[2021-01-11] MEDS: SKIN HEALING OINT (AQUAPHOR) 50 GM TUBE TOP SCH (08:14)
[2021-01-11] MEDS: LIDOCAINE 5% PATCH TRANSDERM SCH (08:15)
[2021-01-11] MEDS: SOTALOL 80 MG TABLET PO SCH (08:15)
[2021-01-11] MEDS: PANTOPRAZOLE 40 MG TABLET PO SCH (08:15)
[2021-01-11] MEDS: MENTHOL/ZINC OXIDE OINT 71 GM JAR TOP SCH (08:15)
[2021-01-11] MEDS: INSULIN GLARGINE 100 UNIT/ML SUBCUT SCH ×2 (08:16→21:25)
[2021-01-11] MEDS: MORPHINE ER 15 MG TABLET PO SCH ×2 (08:16→21:25)
[2021-01-11] MEDS: SODIUM CHLORIDE 0.9% 1,000 ML IV SCH ×2 (08:27→10:45)
[2021-01-11] MEDS: DEXAMETHASONE 4 MG TABLET PO SCH (17:40)
[2021-01-12] MEDS: LEVOTHYROXINE 50 MCG TABLET PO SCH (06:14)
[2021-01-12] MEDS: SODIUM CHLORIDE 0.9% 1,000 ML IV SCH (06:41)
[2021-01-12] MEDS: LIDOCAINE 5% PATCH TRANSDERM SCH (09:03)
[2021-01-12] MEDS: PANTOPRAZOLE 40 MG TABLET PO SCH (09:04)
[2021-01-12] MEDS: SOTALOL 80 MG TABLET PO SCH (09:04)
[2021-01-12] MEDS: MORPHINE ER 15 MG TABLET PO SCH (09:04)
[2021-01-12] MEDS: DEXAMETHASONE 4 MG TABLET PO SCH (09:04)
[2021-01-12] MEDS: INSULIN GLARGINE 100 UNIT/ML SUBCUT SCH (09:05)
[2021-01-12] MEDS: INSULIN LISPRO 100 UNIT/ML SUBCUT SCH ×2 (09:05→12:59)
[2021-01-12] MEDS: SKIN HEALING OINT (AQUAPHOR) 50 GM TUBE TOP SCH (09:05)
[2021-01-12] MEDS: MENTHOL/ZINC OXIDE OINT 71 GM JAR TOP SCH (09:05)
[2021-01-12 16:10] VITALS: BP 153/69
== END 2021-01-12 16:49 | disposition hospice, home (50) | DRG 55 ==
LOC: EDBD → EDUNIT# → N.ED 08:11 → N.EDINP 08:11 → N.3E 15:40 → SUATTDRO 01-06 07:41
PROVIDERS: ADMIT Internal Medicine; ATTEND Internal Medicine